=== PATIENT | female | born 1965 | race Caucasian/White ===

== ENCOUNTER 2023-04-06 08:56 | Outpatient (OUT) | payer OTHER, SELFPAY ==
[2023-04-06 08:57] LABS: Hematocrit 40.1 % (36.0-48.0); Hemoglobin 13.1 g/dL (12.0-16.0); Mean Corpuscular HGB Conc 32.7 g/dL (29.9-35.2); Mean Corpuscular Hemoglobin 32.1 pg (26.7-34.0); Mean Corpuscular Volume 98.3 fL (81.0-99.0); Mean Platelet Volume 8.5 fL (9.5-13.5); Platelet Count 348 10^3/uL (150-450); Red Blood Count 4.08 10^6/uL (4.20-5.40); Red Cell Distribution Width 13.5 % (11.0-15.0); White Blood Count 9.9 10^3/uL (4.0-11.0)
--- NOTE | 2023-04-06 08:58 | MM_ITS ---
Patient: JH HANNAH Exam Date: 04/06/2023 : 1965 Gender:F Ordering : DR Alek Willis . Admission #: [id number] Family : Order #: [id number] CLICK HERE TO VIEW EXAM RADIOLOGY REPORT PROCEDURE: MM TOMOSYNTHESIS SCREENING BI COMPARISON: MG MAMM SCREEN ALAN W CAD, 10/11/2018. MG MAMM ALAN DIAG FU, 10/19/2018. INDICATIONS: Screening Calculator Name NCI Breast Cancer Risk Assessment Tool 5 Year Breast Cancer Risk 1.10% Lifetime Breast Cancer Risk 6.10% Personal Breast Cancer No Personal Ovarian Cancer No Treatments None Family Cancers Aunt-paternal with breast cancer at age ~40; Aunt-paternal with breast cancer at age ~42. LOCATION: [facility] BREAST COMPOSITION: Scattered areas fibroglandular density. FINDINGS: DIAGNOSTIC CATEGORY 1--NEGATIVE. NO CHANGE FROM COMPARISON ASSESSMENT. Scattered benign-appearing calcifications are present. Scattered benign-appearing lymph nodes are present. RIGHT BREAST: No significant suspicious finding. LEFT BREAST: No significant suspicious finding. RECOMMENDATIONS: ROUTINE MAMMOGRAM AND CLINICAL EVALUATION IN 12 MONTHS. PLEASE NOTE: A NORMAL MAMMOGRAM DOES NOT EXCLUDE THE POSSIBILITY OF BREAST CANCER. A CLINICALLY SUSPICIOUS PALPABLE LUMP SHOULD BE BIOPSIED. Dictated by: Maxime Martínez MD on 04/06/2023 at 11:02 Approved by: Maxime Martínez MD on 04/06/2023 at 11:26
[2023-04-06 09:06] LABS: Segmented Neut Absolute Manual 2.97 10^3/uL (1.4-6.5)
[2023-04-06 09:07] LABS: Eosinophils Absolute Manual 0.19 10^3/uL (0.00-0.70); Lymphocytes Absolute Manual 5.94 10^3/uL (1.20-3.80); Monocytes Absolute Manual 0.49 10^3/uL (0.30-0.80)
[2023-04-06 09:28] LABS: Estimated Average Glucose 105 mg/dL; Glycohemoglobin A1C 5.3 % (4.5-6.2)
[2023-04-06 09:52] LABS: Alanine Aminotransferase 23 U/L (14-59); Albumin Globulin Ratio 1.3; Albumin Level 4.2 g/dL (3.4-5.0); Alkaline Phosphatase 67 U/L (46-116); Anion Gap 11.7; Aspartate Amino Transferase 18 U/L (15-37); BUN Creatinine Ratio 26.6; Bilirubin Total 0.6 mg/dL (0.2-1.0); Calcium 8.9 mg/dL (8.5-10.1); Carbon Dioxide 29.1 mmol/L (21.0-32.0); Chloride 104 mmol/L (98-107); Chol HDL Ratio 2.8; Cholesterol 226 mg/dL (<=200); Estimated GFR (African America >60 (>=60); Estimated GFR (Non-African Ame >60 (>=60); Free T3 2.83 pg/mL (2.18-3.98); Globulin 3.2 g/dL; Glucose 96 mg/dL (74-106); HDL Cholesterol 80 mg/dL (40-60); Potassium 3.8 mmol/L (3.5-5.1); Sodium 141 mmol/L (136-145); Thyroid Stimulating Hormone 1.182 uIU/mL (0.358-3.740); Total Protein 7.4 g/dL (6.4-8.2); Triglycerides 65 mg/dL (<=150)
[2023-04-07 11:09] LABS: Insulin 6.1 uIU/mL (2.6-24.9)
== END 2023-04-06 08:57 | disposition home or self-care (01) ==
LOC: MAMMO 08:56
PROVIDERS: PCP Family Medicine; Visit Provider Family Medicine
DX: Z00.00 Encounter for general adult medical examination without abnormal findings (principal); Z12.31 Encounter for screening mammogram for malignant neoplasm of breast; Z80.3 Family history of malignant neoplasm of breast; R79.89 Other specified abnormal findings of blood chemistry
CPT/HCPCS: 36415; 77063; 77067; 80053; 80061; 82306; 83036; 83525; 83540; 84436; 84443; 84481; 85007; 85025

== ENCOUNTER 2024-04-20 13:51 | Outpatient (OUT) | payer OTHER, SELFPAY ==
--- NOTE | 2024-04-20 13:58 | MM_ITS ---
Patient Name: JH HANNAH MR#: [id number] : 1965 Exam Date: 04/20/2024 Ordering Doctor: DR Alek Willis . RADIOLOGY REPORT PROCEDURE: MM TOMOSYNTHESIS SCREENING BI COMPARISON: MM TOMOSYNTHESIS SCREENING BI, 04/06/2023. MG MAMM ALAN DIAG FU, 10/19/2018. INDICATIONS: Screening Calculator Name NCI Breast Cancer Risk Assessment Tool 5 Year Breast Cancer Risk 1.10% Lifetime Breast Cancer Risk 6.00% Personal Breast Cancer No Personal Ovarian Cancer No Treatments None Family Cancers Aunt-paternal with breast cancer at age ~40; Aunt-paternal with breast cancer at age ~42. LOCATION: [facility] [place] BREAST COMPOSITION: There are scattered areas of fibroglandular density. FINDINGS: DIAGNOSTIC CATEGORY 1--NEGATIVE. NO CHANGE FROM COMPARISON ASSESSMENT. Scattered benign-appearing calcifications are present. Scattered benign-appearing lymph nodes are present. RIGHT BREAST: No significant suspicious finding. LEFT BREAST: No significant suspicious finding. RECOMMENDATIONS: ROUTINE MAMMOGRAM AND CLINICAL EVALUATION IN 12 MONTHS. PLEASE NOTE: A NORMAL MAMMOGRAM DOES NOT EXCLUDE THE POSSIBILITY OF BREAST CANCER. A CLINICALLY SUSPICIOUS PALPABLE LUMP SHOULD BE BIOPSIED. Dictated by: Maxime Martínez MD on 04/20/2024 at 15:07 Approved by: Maxime Martínez MD on 04/20/2024 at 15:07
== END 2024-04-20 13:52 | disposition home or self-care (01) ==
LOC: MAMMO 13:51
PROVIDERS: PCP Family Medicine; Visit Provider Family Medicine
DX: Z12.31 Encounter for screening mammogram for malignant neoplasm of breast (principal); Z80.3 Family history of malignant neoplasm of breast
CPT/HCPCS: 77063; 77067

== ENCOUNTER 2024-04-30 08:49 | Outpatient (OUT) | payer OTHER, SELFPAY ==
--- OUTSIDE RECORDS SUMMARY | 2024-04-30 08:53 | XMS_ITS | CCD ---
Author Organization [facility] Care Team Providers Care Assistant Professor Of Life Sciences Name Role Phone GAYATRI JENSENLAS Admitting Unavailable HOY, ROC Attending Unavailable HOY, ROC Primary Care Unavailable HOY, ROC Consulting Unavailable HOY, ROC Admitting Unavailable HOY, ROC Attending Unavailable HOY, ROC Primary Care Unavailable HOY, ROC Consulting Unavailable ROBSON ALCANTARA V Consulting Unavailable HOY, ROC Admitting Unavailable HOY, ROC Attending Unavailable HOY, ROC Primary Care Unavailable HOY, ROC Consulting Unavailable VINCE ARTHUR Consulting Unavailable Problems Problem Classification Problem Date Documented Da te Episodic/Chronic Other screening for suspected conditions (not mental disorders or infectious disease) (9 sources) Encounter for screening mammogram for malignant neoplasm of breast; Translations: [Other abnormal and inconclusive findings on diagnostic imaging of breast] Onset: 10-11-2018 Episodic Residual codes; unclassified (1 source) Family history of malignant neoplasm of breast; Translations: [FAMILY HX MALIG NEOPLASM OF BREAST] Onset: 10-13-2018 Episodic Results Test Name Value Interpretation Reference Range Facil ity MG MAMM ALAN DIAG FUon 2018 MG MAMM ALAN DIAG FU [address] [place] [address] Patient: JH HANNAH. Exam Date: 10/19/2018 : 1965 Gender:F Ordering : DR ROC JENSEN . Admission #: [id number] Family : Order #: [id number] CLICK HERE TO VIEW EXAM RADIOLOGY REPORT PROCEDURE: MAMMOGRAM BILATERAL DIGANOSTIC DIGITAL FOLLOW UP, 10/19/2018, 13:08 ULTRASOUND BREAST LEFT LIMITED, 10/19/2018, 13:28 COMPARISON: MG MAMM ALAN SCRN W CAD DIG, 07/29/2010. MG MAMM ALAN SCRN W CAD DIG, 06/16/2008. MG MAMM ALAN SCRN W CAD DIG, 04/13/2007. MG MAMM SCREEN ALAN W CAD, 10/11/2018. INDICATIONS: Mammography abnormal Mammography abnormal, left breast Calculator Name NCI Breast Cancer Risk Assessment Tool 5 Year Breast Cancer Risk 0.90% Lifetime Breast Cancer Risk 6.80% Personal Breast Cancer No Personal Ovarian Cancer No Treatments None Family Cancers Aunt-paternal with breast cancer at age 40; Aunt-paternal with breast cancer at age 42. LOCATION: [facility] BREAST COMPOSITION: Scattered fibroglandular densities (25-50% glandular). FINDINGS: DIAGNOSTIC CATEGORY 2--BENIGN FINDING. RIGHT BREAST: Spot magnification views demonstrate dispersion of the previously seen asymmetry. Annual screening mammography is recommended. LEFT BREAST: Spot magnification and an exaggerated CC view demonstrates small rounded mass within the posterior lateral breast and inconclusive asymmetry within the medial breast. Ultrasound evaluation demonstrates a 7 mm lymph node within the lateral breast 3 o'clock. Small 8 x 4 x 3 mm lymph node at the 4 o'clock position. Annual screening mammography is recommended. RECOMMENDATIONS: ROUTINE MAMMOGRAM AND CLINICAL EVALUATION. PLEASE NOTE: A NORMAL MAMMOGRAM DOES NOT EXCLUDE THE POSSIBILITY OF BREAST CANCER. A CLINICALLY SUSPICIOUS PALPABLE LUMP SHOULD BE BIOPSIED. Dictated by: Vince Arthur MD on 10/19/2018 at 16:59 Approved by: Vince Arthur MD on 10/19/2018 at 17:04 Normal The [facility] BREAST LEFT LIMITEDon BREAST LEFT LIMITED [address] [place] [address] Patient: JH HANNAH Exam Date: 10/19/2018 : 1965 Gender:F Ordering : DR ROC JENSEN . Admission #: [id number] Family : Order #: [id number] CLICK HERE TO VIEW EXAM RADIOLOGY REPORT PROCEDURE: MAMMOGRAM BILATERAL DIGANOSTIC DIGITAL FOLLOW UP, 10/19/2018, 13:08 ULTRASOUND BREAST LEFT LIMITED, 10/19/2018, 13:28 COMPARISON: MG MAMM ALAN SCRN W CAD DIG, 07/29/2010. MG MAMM ALAN SCRN W CAD DIG, 06/16/2008. MG MAMM ALAN SCRN W CAD DIG, 04/13/2007. MG MAMM SCREEN ALAN W CAD, 10/11/2018. INDICATIONS: Mammography abnormal Mammography abnormal, left breast Calculator Name NCI Breast Cancer Risk Assessment Tool 5 Year Breast Cancer Risk 0.90% Lifetime Breast Cancer Risk 6.80% Personal Breast Cancer No Personal Ovarian Cancer No Treatments None Family Cancers Aunt-paternal with breast cancer at age 40; Aunt-paternal with breast cancer at age 42. LOCATION: [facility] BREAST COMPOSITION: Scattered fibroglandular densities (25-50% glandular). FINDINGS: DIAGNOSTIC CATEGORY 2--BENIGN FINDING. RIGHT BREAST: Spot magnification views demonstrate dispersion of the previously seen asymmetry. Annual screening mammography is recommended. LEFT BREAST: Spot magnification and an exaggerated CC view demonstrates small rounded mass within the posterior lateral breast and inconclusive asymmetry within the medial breast. Ultrasound evaluation demonstrates a 7 mm lymph node within the lateral breast 3 o'clock. Small 8 x 4 x 3 mm lymph node at the 4 o'clock position. Annual screening mammography is recommended. RECOMMENDATIONS: ROUTINE MAMMOGRAM AND CLINICAL EVALUATION. PLEASE NOTE: A NORMAL MAMMOGRAM DOES NOT EXCLUDE THE POSSIBILITY OF BREAST CANCER. A CLINICALLY SUSPICIOUS PALPABLE LUMP SHOULD BE BIOPSIED. Dictated by: Vince Arthur MD on 10/19/2018 at 16:59 Approved by: Vince Arthur MD on 10/19/2018 at 17:04 Normal [facility] MG MAMM SCREEN ALAN W CADon 0 10-11-2018 MG MAMM SCREEN ALAN W CAD [address] [place] [address] Patient: JH HANNAH Exam Date: 10/11/2018 : 1965 Gender:F Ordering : DR ROC JENSEN . Admission #: [id number] Family : Order #: [id number] CLICK HERE TO VIEW EXAM RADIOLOGY REPORT PROCEDURE: MAMMOGRAM BILATERAL SCREENING DIGITAL WITH COMPUTER AIDED DETECTION COMPARISON: MG MAMM ALAN SCRN W CAD DIG, 06/16/2008. MG MAMM ALAN SCRN W CAD DIG, 07/29/2010. INDICATIONS: Screening mammography Calculator Name NCI Breast Cancer Risk Assessment Tool 5 Year Breast Cancer Risk 0.90% Lifetime Breast Cancer Risk 6.80% Personal Breast Cancer No Personal Ovarian Cancer No Treatments None Family Cancers Aunt-paternal with breast cancer at age 40; Aunt-paternal with breast cancer at age 42. LOCATION: [facility] BREAST COMPOSITION: Scattered fibroglandular densities (25-50% glandular). FINDINGS: DIAGNOSTIC CATEGORY 0--INCOMPLETE ASSESSMENT: NEED ADDITIONAL IMAGING EVALUATION. The breasts are increased in size compared to the previous exams. An area of architectural distortion measuring 2 cm upper aspect of the right breast on the MLO projection, spot compression is recommended. 8.4 x 4.9 mm well-circumscribed lobular nodule mid left breast seen only on the MLO projection at the nipple line, spot imaging and ultrasound followup is recommended RECOMMENDATIONS: ADDITIONAL MAMMOGRAPHIC VIEWS REQUIRED: BILATERAL BREASTS. Spot compression views ULTRASOUND BILATERAL BREASTS. PLEASE NOTE: A NORMAL MAMMOGRAM DOES NOT EXCLUDE THE POSSIBILITY OF BREAST CANCER. A CLINICALLY SUSPICIOUS PALPABLE LUMP SHOULD BE BIOPSIED. Dictated by: Robson Alcantara M.D. on 10/12/2018 at 12:41 Approved by: Robson Alcantara M.D. on 10/12/2018 at 12:44 Normal [facility] CBC AUTO DIFFon 09-11-2018 Basophils #/vol (Bld) 0.0 103/ul Normal 0.0-0.1 [facility] Comment on above: Performed By: #### C BC #### [facility] [address] [place] [address] Dora Elizabeth Basophils/100 WBC (Bld) 0.6 % Normal 0.2-2.0 [facility] Comment on above: Performed By: #### C BC #### [facility] [address] [place], [place] [phone] Dora Elizabeth Eosinophils #/vol (Bld) 0.1 103/ul Normal 0.0-0.7 [facility] Comment on above: Performed By: #### C BC #### [facility] [address] [place], [place] [phone] Dora Elizabeth Eosinophils/100 WBC (Bld) 1.6 % Normal 0.9-7.0 [facility] Comment on above: Performed By: #### C BC #### [facility] [address] [place], [place] [phone] Dora Elizabeth Erythrocyte distribution width Ratio (RBC) 12.8 % Normal 11.0-15.0 [facility] Comment on above: Performed By: #### C BC #### [facility] [address] [place], [place] [phone] Dora Elizabeth Hematocrit Volume Fraction (Bld) 38.1 % Normal 36.0-48.0 [facility] Comment on above: Performed By: #### C BC #### [facility] [address] [place] [address] Dora Johnson Hemoglobin mass conc (Bld) 12.7 g/dL Normal 12.0-16.0 [facility] Comment on above: Performed By: #### C BC #### [facility] [address] [place] [address] Dora Johnson IG # 0.01 10e3/ul Normal 0.00-0.03 [facility] Comment on above: Performed By: #### C BC #### [facility] [address] [place] [address] Dora Johnson IG % 0.2 % Normal 0.0-0.5 [facility] Comment on above: Performed By: #### C BC #### [facility] [address] [place] [address] Dora Johnson Lymphocytes #/vol (Bld) 2.3 103/ul Normal 1.2-3.8 [facility] Comment on above: Performed By: #### C BC #### [facility] [address] [place] [address] Dora Johnson Lymphocytes/100 WBC (Bld) 36.4 % Normal 20.5-60.0 [facility] Comment on above: Performed By: #### C BC #### [facility] [address] [place] [address] Dora Johnson MANUAL DIFF REQ NO Normal [facility] Comment on above: Performed By: #### C BC #### [facility] [address] [place] [address] Dora Johnson MCH Entitic mass (RBC) 32.0 pg Normal 26.7-34.0 [facility] Comment on above: Performed By: #### C BC #### [facility] [address] [place] [address] Dora Johnson MCHC mass conc (RBC) 33.3 g/dL Normal 29.9-35.2 [facility] Comment on above: Performed By: #### C BC #### [facility] [address] [place], [place] [address] Dora Elizabeth MCV Entitic volume (RBC) 96.0 fL Normal 81.0-99.0 [facility] Comment on above: Performed By: #### C BC #### [facility] [address] [place], [place] [address] Dora Elizabeth Monocytes #/vol (Bld) 0.6 103/ul Normal 0.3-0.8 [facility] Comment on above: Performed By: #### C BC #### [facility] [address] [place], [place] [address] Dora Elizabeth Monocytes/100 WBC (Bld) 10.1 % Normal 1.7-12.0 [facility] Comment on above: Performed By: #### C BC #### [facility] [address] [place], [place] [address] Dora Elizabeth Neutrophils #/vol (Bld) 3.2 103/ul Normal 1.4-6.5 [facility] Comment on above: Performed By: #### C BC #### [facility] [address] [place], [place] [address] Dora Elizabeth Neutrophils/100 WBC (Bld) 51.1 % Normal 43.0-75.0 [facility] Comment on above: Performed By: #### C BC #### [facility] [address] [place], [place] [address] Dora Elizabeth Platelet mean volume Entitic volume (Bld) 8.4 fL Critically low 9.5-13.5 [facility] Comment on above: Performed By: #### C BC #### [facility] [address] [place], [place] [address] Dora Elizabeth Platelets #/vol (Bld) 343 103/ul Normal 150-450 [facility] Comment on above: Performed By: #### C BC #### [facility] [address] [place], [place] [address] Dora Elizabeth RBC #/vol (Bld) 3.97 106/ul Critically low 4.20-5.40 [facility] Comment on above: Performed By: #### C BC #### [facility] [address] [place], [place] [address] Dora Johnson WBC #/vol (Bld) 6.2 103/ul Normal 4.0-11.0 [facility] Comment on above: Performed By: #### C BC #### [facility] [address] [place], [place] [address] Dora Johnson FREE THYROXINE INDEX T7on FTI 3.04 Normal [facility] Comment on above: Performed By: #### T SH, CMP, T7, LIPID #### [facility] [address] [place], [place] [address] Dora Johnson T3U 38.0 % Normal 23.5-40.5 [facility] Comment on above: Performed By: #### T SH, CMP, T7, LIPID #### [facility] [address] [place] [id number] Dora Johnson T4 8.00 ug/dL Normal 5.53-11.00 [facility] Comment on above: Performed By: #### T SH, CMP, T7, LIPID #### [facility] [address] [place], [place] [address] Dora Johnson GLYCOHEMOGLOBIN A1Con 2017 Glucose mass conc 108 mg/dL Normal [facility] Comment on above: Performed By: #### A 1C #### [facility] [address] [place] [id number] Dora Johnson Hemoglobin A1c/Hemoglobin.total mass fraction (Bld) 5.4 % Normal <=6.0 [facility] Comment on above: Performed By: #### A 1C #### [facility] [address] [place], [place] [address] Doramaria l Johnson IRONon 09-11-2018 Iron mass conc 77.0 ug/dL Normal 37.0-170.0 [facility] Comment on above: Performed By: #### I LISA #### [facility] [address] [place], [place] [address] Dora Johnson LIPID PROFILEon 09-11-2018 CHOL-HDL RATIO NORM SEE BELOW Normal [facility] Comment on above: Result Comment: 3.3 - 4.4 LOW RISK 4.4 - 7.1 AVERAGE RISK 7.1 - 11.0 MODERATE RISK >11.0 HIGH RISK Performed By: #### T SH, CMP, T7, LIPID #### [facility] [address] [place] [id number] Dora Elizabeth Cholesterol in HDL mass conc 61 mg/dL Normal [facility] Comment on above: Performed By: #### T SH, CMP, T7, LIPID #### [facility] [address] [place] [id number] Dora Elizabeth Cholesterol in HDL mass conc > or = 60 mg/dl - LOW CARDIOVASCULAR RISK <40 mg/dl - HIGH CARDIOVASCULAR RISK Normal [facility] Comment on above: Performed By: #### T SH, CMP, T7, LIPID #### [facility] [address] [place] [address] Dora Elizabeth Cholesterol in LDL mass conc 104.2 mg/dL Normal [facility] Comment on above: Performed By: #### T SH, CMP, T7, LIPID #### [facility] [address] [place] [address] Dora Elizabeth Cholesterol in LDL mass conc SEE BELOW Normal [facility] Comment on above: Result Comment: <100 mg/dl OPTIMAL 100 - 129 mg/dl NEAR OR ABOVE OPTIMAL 130 - 159 mg/dl BORDERLINE HIGH 160 - 189 mg/dl HIGH >190 mg/dl VERY HIGH Performed By: #### T SH, CMP, T7, LIPID #### [facility] [address] [place] [id number] Dora Elizabeth Cholesterol mass conc 179 mg/dL Normal <=200 [facility] Comment on above: Performed By: #### T SH, CMP, T7, LIPID #### [facility] [address] [place] [id number] Dora Elizabeth Cholesterol.total/Cho lesterol in HDL mass ratio 2.9 {ratio} Normal [facility] Comment on above: Performed By: #### T SH, CMP, T7, LIPID #### [facility] [address] [place] [phone] Dora Elizabeth Triglyceride mass conc 69 mg/dL Normal <=150 [facility] Comment on above: Performed By: #### T SH, CMP, T7, LIPID #### [facility] [address] [place] [address] Dora Johnson VLDL CALC 13.8 mg/dL Normal [facility] Comment on above: Performed By: #### T SH, CMP, T7, LIPID #### [facility] [address] [place], [place] [phone] Dora Johnson OCC BLD IMMUNO SCREENon 08-22 OCCULT BLOOD Negative Normal NEGATIVE [facility] Comment on above: Performed By: #### O BSCRN #### [facility] [address] [place] [address] Dora Johnson PROF 14(COMP METB)on 018 Albumin mass conc 4.0 g/dL Normal 3.5-5.0 [facility] Comment on above: Performed By: #### T SH, CMP, T7, LIPID #### [facility] [address] [place] [address] Dora Johnson Albumin/Globulin mass ratio 1.3 {ratio} Normal [facility] Comment on above: Performed By: #### T SH, CMP, T7, LIPID #### [facility] [address] [place] [address] Dora Johnson ALP enzyme act/vol 70 U/L Normal 38-126 [facility] Comment on above: Performed By: #### T SH, CMP, T7, LIPID #### [facility] [address] [place] [address] Dora Johnson ALT enzyme act/vol 25 U/L Normal 9-52 [facility] Comment on above: Performed By: #### T SH, CMP, T7, LIPID #### [facility] [address] [place] [address] Dora Johnson Anion gap molar conc 12.9 mmol/L Normal [facility] Comment on above: Performed By: #### T SH, CMP, T7, LIPID #### [facility] [address] [place] [address] Dora Elizabeth AST enzyme act/vol 17 U/L Normal 14-36 [facility] Comment on above: Performed By: #### T SH, CMP, T7, LIPID #### [facility] [address] [place] [address] Dora Elizabeth Bilirubin Ql (U) 0.4 mg/dL Normal 0.2-1.3 [facility] Comment on above: Performed By: #### T SH, CMP, T7, LIPID #### [facility] [address] [place] [address] Dora Elizabeth Calcium mass conc 9.0 mg/dL Normal 8.4-10.2 [facility] Comment on above: Performed By: #### T SH, CMP, T7, LIPID #### [facility] [address] [place] [address] Dora Elizabeth Chloride molar conc 109 mmol/L Critically high 98-107 [facility] Comment on above: Performed By: #### T SH, CMP, T7, LIPID #### [facility] [address] [place] [address] Dora Elizabeth CO2 molar conc 26.2 mmol/L Normal 22.0-30.0 [facility] Comment on above: Performed By: #### T SH, CMP, T7, LIPID #### [facility] [address] [place] [address] Dora Elizabeth Creatinine mass conc 0.76 mg/dL Normal 0.52-1.04 [facility] Comment on above: Performed By: #### T SH, CMP, T7, LIPID #### [facility] [address] [place] [address] Dora Elizabeth EGFR-AF OMANI >60 Normal >=60 [facility] Comment on above: Performed By: #### T SH, CMP, T7, LIPID #### [facility] [address] [place] [address] Dora Elizabeth EGFR-NON AF OMANI >60 Normal >=60 [facility] Comment on above: Performed By: #### T SH, CMP, T7, LIPID #### [facility] [address] [place] [address] Dora Elizabeth Globulin mass conc (S) 3.1 g/dL Normal [facility] Comment on above: Performed By: #### T SH, CMP, T7, LIPID #### [facility] [address] [place] [address] Dora Johnson Glucose mass conc 91 mg/dL Normal 74-106 [facility] Comment on above: Performed By: #### T SH, CMP, T7, LIPID #### [facility] [address] [place] [address] Dora Johnson Potassium molar conc 4.1 mmol/L Normal 3.4-5.0 [facility] Comment on above: Performed By: #### T SH, CMP, T7, LIPID #### [facility] [address] [place] [address] Dora Johnson Protein mass conc 7.1 g/dL Normal 6.1-8.2 [facility] Comment on above: Performed By: #### T SH, CMP, T7, LIPID #### [facility] [address] [place] [address] Dora Johnson Sodium molar conc 144 mmol/L Normal 137-145 [facility] Comment on above: Performed By: #### T SH, CMP, T7, LIPID #### [facility] [address] [place] [address] Dora Johnson Urea nitrogen mass conc 24.0 mg/dL Critically high 7.0-17.0 [facility] Comment on above: Performed By: #### T SH, CMP, T7, LIPID #### [facility] [address] [place] [address] Dora Johnson Urea nitrogen/Creatinine mass ratio 31.6 mg/mg Normal [facility] Comment on above: Performed By: #### T SH, CMP, T7, LIPID #### [facility] [address] [place] [address] Dora Johnson TSHon 09-11-2018 Thyrotropin Qn 0.959 uIU/mL Normal 0.470-4.680 [facility] Comment on above: Performed By: #### T SH, CMP, T7, LIPID #### [facility] [address] [place], [place] [id number] Dora Johnson Thyrotropin Qn SEE BELOW Normal [facility] Comment on above: Result Comment: <0.3 4 UIU/ml HYPERTHYROID 0.34-5.60 UIU/ml EUTHYROID >5.60 UIU/ml HYPOTHYROID Performed By: #### T SH, CMP, T7, LIPID #### [facility] [address] [place], [place] [address] Dora Johnson Encounters Encounter Date Encounter Type Care Provider Facility Start: 10-19-2018 End: 10-20-2018 Patient encounter procedure ROC HOY Facility:[facility] Start: 10-11-2018 End: 10-12-2018 Patient encounter procedure ROC HOY Facility:[facility] Start: 09-19-2018 Encounter for genera l adult medical examination without abnormal findings [facility] Start: 09-11-2018 End: 09-12-2018 [facility] Encounter for genera l adult medical examination without abnormal findings [facility] Payers Date Payer Category Payer Unknown [id number] [id number] [id number] 1965 Unknown [id number] [id number] [id number] 1965 Unknown [id number] 1960 Unknown [id number] Summary Purpose Family History No Family History Records Found Advance Directives No Advanced Directives Records Found Additional Source Comments INFORMATION SOURCE (unrecogn ized section and content) DATE CREATED AUTHOR 11/04/2018 [facility] FOR RECORDS PERTAINING TO PATIENTS WHO ARE OR HAVE BEEN ENROLLED IN A CHEMICAL DEPENDENCY/SUBSTANCEABUSE PROGRAM, SOME INFORMATION MAY BE OMITTED. This clinical summary was aggregated from multiple sources. Caution should be exercised in using it in the provision of clinical care. This summary normalizes information from multiple sources, and as a consequence, information in this document may materially change the coding, format and clinical context of patient data. In addition, data may be omitted in some cases. CLINICAL DECISIONS SHOULD BE BASED ON THE PRIMARY CLINICAL RECORDS. [employer] [facility]. provides no warranty or guarantee of the accuracy or completeness of information in this document.
[2024-04-30 09:13] LABS: Hematocrit 39.1 % (36.0-48.0); Hemoglobin 12.9 g/dL (12.0-16.0); Mean Corpuscular Hemoglobin 32.3 pg (26.7-34.0); Mean Corpuscular Volume 97.8 fL (81.0-99.0); Mean Platelet Volume 8.6 fL (9.5-13.5); Platelet Count 305 10^3/uL (150-450); Red Cell Distribution Width 13.7 % (11.0-15.0); White Blood Count 14.2 10^3/uL (4.0-11.0)
[2024-04-30 09:25] LABS: Estimated Average Glucose 111 mg/dL; Glycohemoglobin A1C 5.5 % (4.5-6.2)
[2024-04-30 09:49] LABS: Alanine Aminotransferase 25 U/L (14-59); Albumin Globulin Ratio 1.4; Albumin Level 3.8 g/dL (3.4-5.0); Alkaline Phosphatase 60 U/L (46-116); Anion Gap 12.5; Aspartate Amino Transferase 18 U/L (15-37); BUN Creatinine Ratio 24.6; Bilirubin Total 0.6 mg/dL (0.2-1.0); Calcium 8.7 mg/dL (8.5-10.1); Carbon Dioxide 27.7 mmol/L (21.0-32.0); Chloride 105 mmol/L (98-107); Chol HDL Ratio 2.7; Cholesterol 217 mg/dL (<=200); Estimated GFR (African America >60 (>=60); Estimated GFR (Non-African Ame >60 (>=60); Globulin 2.8 g/dL; Glucose 94 mg/dL (74-106); HDL Cholesterol 80 mg/dL (40-60); Potassium 4.2 mmol/L (3.5-5.1); Sodium 141 mmol/L (136-145); Thyroid Stimulating Hormone 1.437 uIU/mL (0.358-3.740); Total Protein 6.6 g/dL (6.4-8.2); Triglycerides 43 mg/dL (<=150); VLDL CHOLESTEROL 8.6 mg/dL
[2024-04-30 09:56] LABS: Basophils Abs Manual 0.28 10^3/uL (0.00-0.10); Monocytes Absolute Manual 0.42 10^3/uL (0.30-0.80); Segmented Neut Absolute Manual 2.98 10^3/uL (1.4-6.5)
== END 2024-04-30 08:50 | disposition home or self-care (01) ==
LOC: LAB 08:50
PROVIDERS: PCP Family Medicine; Visit Provider Family Medicine
DX: Z00.00 Encounter for general adult medical examination without abnormal findings (principal)
CPT/HCPCS: 36415; 80053; 80061; 82306; 83036; 84439; 84443; 85007; 85027

== ENCOUNTER 2024-06-04 07:58 | Outpatient (OUT) | payer OTHER, SELFPAY ==
--- OUTSIDE RECORDS SUMMARY | 2024-06-04 08:02 | XMS_ITS | CCD ---
Author Organization [facility] Care Team Providers Care Technician Inventory Specialist Name Role Phone GAYATRI JENSENLAS Admitting Unavailable [...] 2018 MG MAMM ALAN DIAG FU [address] [place] [address] Patient: JH HANNAH. Exam Date: 10/19/2018 : 1965 Gender:F Ordering : DR ROC JENSEN . Admission #: [id number] Family : Order #: [id number] CLICK HERE TO VIEW EXAM RADIOLOGY REPORT [...] breast cancer at age 41. LOCATION: [facility] BREAST COMPOSITION: Scattered fibroglandular densities (25-50% glandular). [...] MD on 10/19/2018 at 17:04 Normal [facility] BREAST LEFT LIMITEDon BREAST LEFT LIMITED [address] [place] [address] Patient: JH HANNAH Exam Date: 10/19/2018 : 1965 Gender:F Ordering : DR ROC JENSEN . Admission #: [id number] Family : Order #: [id number] CLICK HERE TO VIEW EXAM RADIOLOGY REPORT [...] breast cancer at age 41. LOCATION: [facility] BREAST COMPOSITION: Scattered fibroglandular densities (25-50% glandular). [...] MD on 10/19/2018 at 17:04 Normal [facility] MG MAMM SCREEN ALAN W CADon 0 10-11-2018 MG MAMM SCREEN ALAN W CAD [address] [place] [address] Patient: JH HANNAH Exam Date: 10/11/2018 : 1965 Gender:F Ordering : DR ROC JENSEN . Admission #: [id number] Family : Order #: [id number] CLICK HERE TO VIEW EXAM RADIOLOGY REPORT [...] breast cancer at age 41. LOCATION: [facility] BREAST COMPOSITION: Scattered fibroglandular densities (25-50% glandular). [...] M.D. on 10/12/2018 at 12:44 Normal [facility] CBC AUTO DIFFon 09-11-2018 Basophils #/vol (Bld) 0.0 103/ul Normal 0.0-0.1 [facility] Comment on above: Performed By: #### C BC #### [facility] [address] [place] [address] Dora Elizabeth Basophils/100 WBC (Bld) 0.6 % Normal 0.2-2.0 [facility] Comment on above: Performed By: #### C BC #### [facility] [address] [place], [place] [id number] Dora Elizabeth Eosinophils #/vol (Bld) 0.1 103/ul Normal 0.0-0.7 [facility] Comment on above: Performed By: #### C BC #### [facility] [address] [place], [place] [id number] Dora Elizabeth Eosinophils/100 WBC (Bld) 1.6 % Normal 0.9-7.0 [facility] Comment on above: Performed By: #### C BC #### [facility] [address] [place], [place] [id number] Dora Elizabeth Erythrocyte distribution width Ratio (RBC) 12.8 % Normal 11.0-15.0 [facility] Comment on above: Performed By: #### C BC #### [facility] [address] [place], [place] [id number] Dora Elizabeth Hematocrit Volume Fraction (Bld) 38.1 % Normal 36.0-48.0 [facility] Comment on above: Performed By: #### C BC #### [facility] [address] [place] [address] Dora Johnson Hemoglobin mass conc (Bld) 12.7 g/dL Normal 12.0-16.0 [facility] Comment on above: Performed By: #### C BC #### [facility] [address] [place] [address] Dora Johnson IG # 0.01 10e3/ul Normal 0.00-0.03 [facility] Comment on above: Performed By: #### C BC #### [facility] [address] [place] [address] Dora Johnson IG % 0.2 % Normal 0.0-0.5 [facility] Comment on above: Performed By: #### C BC #### [facility] [address] [place] [address] Dora Johnson Lymphocytes #/vol (Bld) 2.3 103/ul Normal 1.2-3.8 [facility] Comment on above: Performed By: #### C BC #### [facility] [address] [place] [address] Dora Johnson Lymphocytes/100 WBC (Bld) 36.4 % Normal 20.5-60.0 [facility] Comment on above: Performed By: #### C BC #### [facility] [address] [place] [address] Dora Johnson MANUAL DIFF REQ NO Normal [facility] Comment on above: Performed By: #### C BC #### [facility] [address] [place] [address] Dora Johnson MCH Entitic mass (RBC) 32.0 pg Normal 26.7-34.0 [facility] Comment on above: Performed By: #### C BC #### [facility] [address] [place] [address] Dora Johnson MCHC mass conc (RBC) 33.3 g/dL Normal 29.9-35.2 [facility] Comment on above: Performed By: #### C BC #### [facility] [address] [place], [place] [address] Dora Elizabeth MCV Entitic volume (RBC) 96.0 fL Normal 81.0-99.0 [facility] Comment on above: Performed By: #### C BC #### [facility] [address] [place], [place] [address] Dora Elizabeth Monocytes #/vol (Bld) 0.6 103/ul Normal 0.3-0.8 [facility] Comment on above: Performed By: #### C BC #### [facility] [address] [place], [place] [address] Dora Elizabeth Monocytes/100 WBC (Bld) 10.1 % Normal 1.7-12.0 [facility] Comment on above: Performed By: #### C BC #### [facility] [address] [place], [place] [address] Dora Elizabeth Neutrophils #/vol (Bld) 3.2 103/ul Normal 1.4-6.5 [facility] Comment on above: Performed By: #### C BC #### [facility] [address] [place], [place] [address] Dora Elizabeth Neutrophils/100 WBC (Bld) 51.1 % Normal 43.0-75.0 [facility] Comment on above: Performed By: #### C BC #### [facility] [address] [place], [place] [address] Dora Elizabeth Platelet mean volume Entitic volume (Bld) 8.4 fL Critically low 9.5-13.5 [facility] Comment on above: Performed By: #### C BC #### [facility] [address] [place], [place] [address] Dora Elizabeth Platelets #/vol (Bld) 343 103/ul Normal 150-450 [facility] Comment on above: Performed By: #### C BC #### [facility] [address] [place], [place] [address] Dora Elizabeth RBC #/vol (Bld) 3.97 106/ul Critically low 4.20-5.40 [facility] Comment on above: Performed By: #### C BC #### [facility] [address] [place], [place] [address] Dora Johnson WBC #/vol (Bld) 6.2 103/ul Normal 4.0-11.0 [facility] Comment on above: Performed By: #### C BC #### [facility] [address] [place], [place] [address] Dora Johnson FREE THYROXINE INDEX T7on FTI 3.04 Normal [facility] Comment on above: Performed By: #### T SH, CMP, T7, LIPID #### [facility] [address] [place], [place] [address] Dora Johnson T3U 38.0 % Normal 23.5-40.5 [facility] Comment on above: Performed By: #### T SH, CMP, T7, LIPID #### [facility] [address] [place] [id number] Dora Johnson T4 8.00 ug/dL Normal 5.53-11.00 [facility] Comment on above: Performed By: #### T SH, CMP, T7, LIPID #### [facility] [address] [place], [place] [address] Dora Johnosn GLYCOHEMOGLOBIN A1Con 2017 Glucose mass conc 108 mg/dL Normal [facility] Comment on above: Performed By: #### A 1C #### [facility] [address] [place] [id number] Dora Johnson Hemoglobin A1c/Hemoglobin.total mass fraction (Bld) 5.4 % Normal <=6.0 [facility] Comment on above: Performed By: #### A 1C #### [facility] [address] [place], [place] [address] Doramaria l Johnson IRONon 09-11-2018 Iron mass conc 77.0 ug/dL Normal 37.0-170.0 [facility] Comment on above: Performed By: #### I LISA #### [facility] [address] [place], [place] [address] Dora Johnson LIPID PROFILEon 09-11-2018 CHOL-HDL RATIO NORM SEE BELOW Normal [facility] Comment on above: Result Comment: 3.3 - 4.4 LOW RISK 4.4 - 7.1 AVERAGE RISK 7.1 - 11.0 MODERATE RISK >11.0 HIGH RISK Performed By: #### T SH, CMP, T7, LIPID #### [facility] [address] [place] [id number] Dora Elizabeth Cholesterol in HDL mass conc 61 mg/dL Normal [facility] Comment on above: Performed By: #### T SH, CMP, T7, LIPID #### [facility] [address] [place] [id number] Dora Elizabeth Cholesterol in HDL mass conc > or = 60 mg/dl - LOW CARDIOVASCULAR RISK <40 mg/dl - HIGH CARDIOVASCULAR RISK Normal [facility] Comment on above: Performed By: #### T SH, CMP, T7, LIPID #### [facility] [address] [place] [address] Dora Elizabeth Cholesterol in LDL mass conc 104.2 mg/dL Normal [facility] Comment on above: Performed By: #### T SH, CMP, T7, LIPID #### [facility] [address] [place] [address] Dora Elizabeth Cholesterol in LDL mass conc SEE BELOW Normal [facility] Comment on above: Result Comment: <100 mg/dl OPTIMAL 100 - 129 mg/dl NEAR OR ABOVE OPTIMAL 130 - 159 mg/dl BORDERLINE HIGH 160 - 189 mg/dl HIGH >190 mg/dl VERY HIGH Performed By: #### T SH, CMP, T7, LIPID #### [facility] [address] [place] [id number] Dora Elizabeth Cholesterol mass conc 179 mg/dL Normal <=200 [facility] Comment on above: Performed By: #### T SH, CMP, T7, LIPID #### [facility] [address] [place] [id number] Dora Elizabeth Cholesterol.total/Cho lesterol in HDL mass ratio 2.9 {ratio} Normal [facility] Comment on above: Performed By: #### T SH, CMP, T7, LIPID #### [facility] [address] [place] [id number] Dora Elizabeth Triglyceride mass conc 69 mg/dL Normal <=150 [facility] Comment on above: Performed By: #### T SH, CMP, T7, LIPID #### [facility] [address] [place] [address] Dora Johnson VLDL CALC 13.8 mg/dL Normal [facility] Comment on above: Performed By: #### T SH, CMP, T7, LIPID #### [facility] [address] [place], [place] [phone] Dora Johnson OCC BLD IMMUNO SCREENon 08-22 OCCULT BLOOD Negative Normal NEGATIVE [facility] Comment on above: Performed By: #### O BSCRN #### [facility] [address] [place] [address] Dora Johnson PROF 14(COMP METB)on 018 Albumin mass conc 4.0 g/dL Normal 3.5-5.0 [facility] Comment on above: Performed By: #### T SH, CMP, T7, LIPID #### [facility] [address] [place] [address] Dora Johnson Albumin/Globulin mass ratio 1.3 {ratio} Normal [facility] Comment on above: Performed By: #### T SH, CMP, T7, LIPID #### [facility] [address] [place] [address] Dora Johnson ALP enzyme act/vol 70 U/L Normal 38-126 [facility] Comment on above: Performed By: #### T SH, CMP, T7, LIPID #### [facility] [address] [place] [address] Dora Johnson ALT enzyme act/vol 25 U/L Normal 9-[address] [facility] Comment on above: Performed By: #### T SH, CMP, T7, LIPID #### [facility] [address] [place] [address] Dora Johnson Anion gap molar conc 12.9 mmol/L Normal [facility] Comment on above: Performed By: #### T SH, CMP, T7, LIPID #### [facility] [address] [place] [address] Dora Elizabeth AST enzyme act/vol 17 U/L Normal 14-[address] [facility] Comment on above: Performed By: #### T SH, CMP, T7, LIPID #### [facility] [address] [place] [address] Dora Elizabeth Bilirubin Ql (U) 0.4 mg/dL Normal 0.2-1.3 [facility] Comment on above: Performed By: #### T SH, CMP, T7, LIPID #### [facility] [address] [place] [address] Dora Elizabeth Calcium mass conc 9.0 mg/dL Normal 8.4-10.2 [facility] Comment on above: Performed By: #### T SH, CMP, T7, LIPID #### [facility] [address] [place] [address] Dora Elizabeth Chloride molar conc 109 mmol/L Critically high 98-107 [facility] Comment on above: Performed By: #### T SH, CMP, T7, LIPID #### [facility] [address] [place] [address] Dora Elizabeth CO2 molar conc 26.2 mmol/L Normal 22.0-30.0 [facility] Comment on above: Performed By: #### T SH, CMP, T7, LIPID #### [facility] [address] [place] [address] Dora Elizabeth Creatinine mass conc 0.76 mg/dL Normal 0.52-1.04 [facility] Comment on above: Performed By: #### T SH, CMP, T7, LIPID #### [facility] [address] [place] [address] Dora Elizabeth EGFR-AF [place]ER >60 Normal >=60 [facility] Comment on above: Performed By: #### T SH, CMP, T7, LIPID #### [facility] [address] [place] [address] Dora Elizabeth EGFR-NON AF [place]ER >60 Normal >=60 [facility] Comment on above: Performed By: #### T SH, CMP, T7, LIPID #### [facility] [address] [place] [address] Dora Elizabeth Globulin mass conc (S) 3.1 g/dL Normal [facility] Comment on above: Performed By: #### T SH, CMP, T7, LIPID #### [facility] [address] [place] [address] Dora Johnson Glucose mass conc 91 mg/dL Normal 74-106 [facility] Comment on above: Performed By: #### T SH, CMP, T7, LIPID #### [facility] [address] [place] [address] Dora Johnson Potassium molar conc 4.1 mmol/L Normal 3.4-5.0 [facility] Comment on above: Performed By: #### T SH, CMP, T7, LIPID #### [facility] [address] [place] [address] Dora Johnson Protein mass conc 7.1 g/dL Normal 6.1-8.2 [facility] Comment on above: Performed By: #### T SH, CMP, T7, LIPID #### [facility] [address] [place] [address] Dora Johnson Sodium molar conc 144 mmol/L Normal 137-145 [facility] Comment on above: Performed By: #### T SH, CMP, T7, LIPID #### [facility] [address] [place] [address] Dora Johnson Urea nitrogen mass conc 24.0 mg/dL Critically high 7.0-17.0 [facility] Comment on above: Performed By: #### T SH, CMP, T7, LIPID #### [facility] [address] [place] [address] Dora Johnson Urea nitrogen/Creatinine mass ratio 31.6 mg/mg Normal [facility] Comment on above: Performed By: #### T SH, CMP, T7, LIPID #### [facility] [address] [place] [address] Dora Johnson TSHon 09-11-2018 Thyrotropin Qn 0.959 uIU/mL Normal 0.470-4.680 [facility] Comment on above: Performed By: #### T SH, CMP, T7, LIPID #### [facility] [address] [place], [place] [id number] Dora Johnson Thyrotropin Qn SEE BELOW Normal [facility] Comment on above: Result Comment: <0.3 4 UIU/ml HYPERTHYROID 0.34-5.60 UIU/ml EUTHYROID >5.60 UIU/ml HYPOTHYROID Performed By: #### T SH, CMP, T7, LIPID #### [facility] [address] [place], [place] [address] Dora Johnson Encounters Encounter Date Encounter Type Care Provider Facility Start: 10-19-2018 End: 10-20-2018 Patient encounter procedure [facility] HOY Facility:[facility] Start: 10-11-2018 End: 10-12-2018 Patient encounter procedure [facility] HOY Facility:[facility] Start: 09-19-2018 Encounter for genera l adult medical examination without abnormal findings [facility] Start: 09-11-2018 End: 09-12-2018 Patient encounter procedure [facility] Facility:[facility] Encounter for genera l adult medical examination without abnormal findings [facility] Payers Date Payer Category Payer Unknown [id number] 1965 Unknown [id number] 1965 Unknown [id number] 1960 Unknown [id number] Summary Purpose Family History No Family History Records Found Advance Directives No Advanced Directives Records Found Additional Source Comments INFORMATION SOURCE (unrecogn ized section and content) DATE CREATED AUTHOR 11/04/2018 [facility] FOR RECORDS PERTAINING TO PATIENTS WHO ARE [...] BE BASED ON THE PRIMARY CLINICAL RECORDS. [employer] [facility]. provides no warranty or guarantee of the accuracy or completeness of information in this document.
[2024-06-04 08:19] LABS: Hematocrit 40.1 % (36.0-48.0); Hemoglobin 13.3 g/dL (12.0-16.0); Mean Corpuscular HGB Conc 33.2 g/dL (29.9-35.2); Mean Corpuscular Hemoglobin 32.8 pg (26.7-34.0); Mean Platelet Volume 8.5 fL (9.5-13.5); Platelet Count 313 10^3/uL (150-450); Red Blood Count 4.05 10^6/uL (4.20-5.40); White Blood Count 12.6 10^3/uL (4.0-11.0)
[2024-06-04 08:54] LABS: Atypical Lymphocytes Abs Man 0.12; Band Neutrophils Absolute 0.3 10^3/uL (0.0-0.3); Eosinophils Absolute Manual 0.12 10^3/uL (0.00-0.70); Lymphocytes Absolute Manual 8.56 10^3/uL (1.20-3.80); Monocytes Absolute Manual 0.12 10^3/uL (0.30-0.80)
== END 2024-06-04 07:59 | disposition home or self-care (01) ==
LOC: LAB 08:00
PROVIDERS: PCP Family Medicine; Visit Provider Family Medicine
DX: D72.829 Elevated white blood cell count, unspecified (principal)
CPT/HCPCS: 36415; 85007; 85027